=== PATIENT | female | born 1995 | race Caucasian/White ===

== ENCOUNTER 2023-05-19 09:04 | Emergency (ER) | payer OTHER, SELFPAY ==
--- NOTE | ~2023-05-19 | CT_ITS ---
EXAMINATION: CT abdomen pelvis w con INDICATION: Right lower quadrant pain TECHNIQUE: Computed tomographic images of the abdomen and pelvis were obtained after the administrati on of 100 cc of Omnipaque 350 intravenous contrast. The dose-length product (DLP) was 385.01 mGy-cm. Automated exposure control and iterative reconstruction technique were employed. COMPARISON: None available FINDINGS: The lung bases are clear. The heart size is normal. The liver, spleen, pancreas, gallbladde r, and adrenal glands are normal. The kidneys are unremarkable. No pathologically enlarged abdominal or pelvic lymph nodes are identified. There is a moderate amount of fluid in the right adnexa and pel vis. No free intraperitoneal gas or evidence of bowel obstruction. An IUD is in expected position. Th ere is a small umbilical hernia containing fat. The appendix is normal. IMPRESSION: 1. Moderate volume of fluid in the right adnexa likely reflecting ovarian cyst rupture. Reviewed, dictated and finalized at location [facility]. [facility] FACULTY MEMBER
--- NOTE | ~2023-05-19 | US_ITS ---
EXAMINATION: US pelvic complete DATE: 05/19/2023 12:38 INDICATION: Right lower quadrant pain TECHNIQUE: Multiple transabdominal sonographic images of the pelvis were obtained. COMPARISON: None. FINDINGS: The examination is limited by transabdominal only technique. The uterus measures 8.5 x 2.8 x 5.7 cm. The endometrial complex measures 2 mm. The right ovary measures 3.3 x 1.9 x 2.6 cm. The lef t ovary measures 2.7 x 1.3 x 2.2 cm. There is normal vascular flow in the ovaries. There is a small a mount of free fluid in the pelvis. IMPRESSION: 1. Small amount of free fluid in the pelvis. Evaluation limited by transabdominal only technique. Reviewed, dictated and finalized at location [facility]. [facility] MAINTENANCE IMPRESSION: 1. Small amount of free fluid in the pelvis. Evaluation limited by transabdomin al only technique.
[2023-05-19 09:16] VITALS: BP 129/82; PULSE 85; RESP 16; TEMP 37.1; O2SAT 100
[2023-05-19 10:10] VITALS: PULSE 92; RESP 15; O2SAT 100
[2023-05-19 10:25] LABS: Basophils Absolute Auto 0.1 K/mm3 (0.0-0.1); Basophils Percent Auto 1.2 % (0.2-1.2); Eosinophils Absolute Auto 0.1 K/mm3 (0-0.3); Eosinophils Percent Auto 0.8 % (0-4.4); Hematocrit 37.9 % (37.0-47.0); Hemoglobin 13.1 g/dL (12.0-15.0); Immature Granulocyte Absolute 0.02 K/mm3 (0.00-0.031); Immature Granulocyte Percent A 0.3 % (0-0.5); Lymphocytes Absolute Auto 1.92 K/mm3 (0.9-3.2); Lymphocytes Percent Auto 31.8 % (18.3-44.2); Mean Corpuscular HGB Conc 34.6 g/dl (32-36); Mean Corpuscular Hemoglobin 31.6 pg (26-34); Mean Corpuscular Volume 91.3 fl (80-100); Mean Platelet Volume 9.5 fl (7.4-10.4); Monocytes Absolute Auto 0.3 K/mm3 (0.1-0.6); Monocytes Percent Auto 4.5 % (2.6-8.5); Neutrophils Absolute Auto 3.7 K/mm3 (1.3-6.7); Neutrophils Percent Auto 61.4 % (45.5-73.1); Platelet Count Result 223 k/mm3 (150-375); Red Blood Count 4.15 M/mm3 (4.2-5.4); Red Cell Distribution Width 12.4 % (11.5-14.5)
[2023-05-19 10:31] LABS: Appearance Urine Clear (Clear); Bacteria Urine None Seen /hpf; Bilirubin Urine Negative (Negative); Blood Urine Negative (Negative); Color Urine Yellow (Yellow); Glucose Urine UA Negative (Negative); Ketones Urine Negative (Negative); Leukocyte Esterase Ur Trace LEU/UL (Negative); Nitrate Urine Negative (Negative); Non Pathogenic Casts 0-2; Protein Urine Negative (Negative); RBC Urine 0-2 /hpf (0-2); Specific Grav Ur 1.006 (1.001-1.035); Squamous Epithelial Cell Urine Few /hpf (Few); Urobilinogen Urine 0.2 mg/dL (<2.0); WBC Urine 0-5 /hpf
[2023-05-19 10:32] LABS: Add Urine Microscopic? YES
--- NOTE | 2023-05-19 10:36 | ED.ABDPAIN ---
HPI - Abdominal Pain General Chief Complaint: Abdominal Pain Stated Complaint: rlq pain Time Seen by Provider: 05/19/23 10:09 Source: patient Mode of arrival: ambulatory Limitations: no limitations History of Present Illness HPI narrative: This is a 27 year old female that presents to the ER for right lower quadrant pain. Ongoing over the last couple of days. Reports the pain worsened today which prompted her to be seen. She has been taking Tylenol and anti-inflammatories with some relief. Denies fever, vomiting, dysuria, hematuria. Related Data Allergies Allergy/AdvReac Type Severity Reaction Status Date / Time No Known Allergies Allergy Verified 05/19/23 10:09 Review of Systems Review of Systems: CONSTITUTIONAL: Denies fever GASTROINTESTINAL: Reports abdominal pain. Denies nausea, vomiting, or diarrhea. GENITOURINARY: Denies dysuria or hematuria. All systems reviewed & are unremarkable except as noted in HPI and below PMFSH Past Medical History Medical History (Updated 05/19/23 @ 14:06 by Emely Hardin PA-C) No active medical problems Social History Social History (Updated 05/19/23 @ 10:40 by Emely Hardin PA-C) Smoking status: Never smoker Exam Narrative: GENERAL: Well-appearing, well-nourished, and in no acute distress. HEAD: Normocephalic, atraumatic. EYES: EOMI. CHEST: Clear to auscultation. No respiratory distress. No wheezes rales or rhonchi HEART: Regular rate and rhythm. No murmur heard. Normal peripheral pulses. ABDOMEN: Soft, nondistended, normal active bowel sounds. Mild tenderness to palpation in the right lower quadrant, without guarding EXTREMITIES: Normal range of motion. No edema. SKIN: Warm, dry, no rash. NEURO: No focal deficits. Alert and oriented x3. PSYCH: Normal mood and affect Course Course Emergency Course: patient updated on her workup and agrees with plan of care Vital Signs Vital signs: Vital Signs Temperature 98.8 F 05/19/23 09:16 Pulse Rate 85 05/19/23 09:16 Respiratory Rate 16 05/19/23 09:16 Blood Pressure 129/82 05/19/23 09:16 Pulse Oximetry 100 05/19/23 09:16 Oxygen Delivery Room Air 05/19/23 09:16 Temperature 98.8 F 05/19/23 09:16 Pulse Rate 100 05/19/23 12:06 Respiratory Rate 18 05/19/23 12:06 Blood Pressure 130/82 05/19/23 12:06 Pulse Oximetry 100 05/19/23 12:06 Oxygen Delivery Room Air 05/19/23 09:16 MDM - Abdominal Pain MDM Narrative Medical decision making narrative: Patient presents to the emergency department for right lower quadrant pain. Ongoing over the last couple of days. Patient is afebrile and nontoxic appearing. CBC without leukocytosis. Metabolic panel without concerning findings. UA without evidence of infection. test is negative. CT abdomen and pelvis shows likely an ovarian cyst rupture. Pelvic ultrasound shows normal vascular flow to the ovaries with a small amount of free fluid in the pelvis. Patient instructed on further care of this. She is to follow up with her parts advisor. She was given warnings to return to the ER Differential Diagnosis Differential diagnosis: Likely acute appendicitis, calculus of kidney and other (ovarian cyst rupture) Lab Data Attestation: I reviewed the patient's lab results. 05/19/23 10:18 05/19/23 10:18 Labs: Lab Results 05/19/23 Range/Units 10:18 WBC 6.0 (4.5-10.0) K/mm3 RBC 4.15 L (4.2-5.4) M/mm3 Hgb 13.1 (12.0-15.0) g/dL Hct 37.9 (37.0-47.0) % MCV 91.3 (80-100) fl MCH 31.6 (26-34) pg MCHC 34.6 (32-36) g/dl RDW 12.4 (11.5-14.5) % Plt Count 223 (150-375) k/mm3 MPV 9.5 (7.4-10.4) fl Immature Gran % (Auto) 0.3 (0-0.5) % Neut % (Auto) 61.4 (45.5-73.1) % Lymph % (Auto) 31.8 (18.3-44.2) % Bay % (Auto) 4.5 (2.6-8.5) % Eos % (Auto) 0.8 (0-4.4) % Baso % (Auto) 1.2 (0.2-1.2) % Lymph # (Auto) 1.92 (0.9-3.2) K/mm3 Bay # (Auto) 0.3 (0.1-0.6)
[2023-05-19 10:42] LABS: Alanine Aminotransferase 13 U/L (6-35); Albumin Level 4.4 g/dL (3.5-5.1); Alkaline Phosphatase 44 U/L (38-126); Anion Gap 7 mmol/L (8-16); Aspartate Amino Transferase 26 U/L (14-36); Bilirubin,Total 0.8 mg/dL (0.2-1.3); Blood Urea Nitrogen 10 mg/dL (7-17); Calcium 9.6 mg/dL (8.4-10.2); Carbon Dioxide 25 mmol/L (22-30); Chloride 108 mmol/L (98-107); Estimated CRCL calculation 99 ml/min; Estimated Glomerular Filt Rate > 60; Glucose 96 mg/dL (65-110); Lipase 35 U/L (23-300); Potassium 4.1 mmol/L (3.4-5.0); Sodium 140 mmol/L (137-145)
--- NOTE | 2023-05-19 11:04 | PC.NURSE ---
Pt to CT scan via stretcher at this time.
[2023-05-19 12:06] VITALS: BP 130/82; PULSE 100; RESP 18; O2SAT 100
== END 2023-05-19 14:17 | disposition home or self-care (01) ==
PROVIDERS: Emergency Provider Physician Assistant
DX: N83.8 Other noninflammatory disorders of ovary, fallopian tube and broad ligament (principal)
CPT/HCPCS: 36415; 74177; 76856; 80053; 81001; 81025; 83690; 85025; 99284; Q9967

== ENCOUNTER 2024-08-15 07:02 | Outpatient (CLI) | payer OTHER, SELFPAY ==
--- NOTE | ~2024-08-15 | XR_ITS ---
Lumbosacral Spine: AP and lateral views Clinical History: Pain Findings: The normal lordotic curve is maintained. The vertebral bodies and posterior elements are i ntact. The intervertebral disc spaces are preserved. The sacroiliac joints are normally outlined. Impression: No significant abnormality. Reviewed, dictated and finalized at [facility]. Impression: No significant abnormality.
--- OUTSIDE RECORDS SUMMARY | 2024-08-15 07:06 | XMS_ITS | Clinical Summary ---
Author Organization [facility] Address [address] [place] [address] Care Team Providers Care [employer] St[employer]cher Name Role Phone Maggie Hernadez APRN-DIRECTORY CARRIER Unavailable [facility] Primary Care Provider [phone] Fredis Arango DO Unavailable Source Comments [facility],non-owned Affiliates and Associated Physician Practices is amultiple site organization consisting of ambulatory clinics and hospital sitesin [place], [place], [place] and [place]. This disclosure is being madepursuant to the Care Everywhere program and may not contain all information available regarding this patient. Last updated 17.[facility] Allergies No known active allergies Medications * Be aware that medications may not be up to date on this document. Alwaysverify current medications with the patient. Multiple Vitamin (One Daily Multivitamin Adult) TABS Take 1 tablet by mouth Active butalbital-aceta minophen-caffein e (Fioricet) 50-325-40 MG tabletIndication s:Other migraine without status migrainosus, intractable Take 1 (one) tablet by mouth every 4 hours as needed for Headache 60 tablet 1 2 Active levonorgestrel (Mirena) 20 MCG/DAY IUD by Intrauterine route as directed Active cephalexin (Keflex) 500 MG capsule 3 Active predniSONE (Deltasone) 20 MG tablet 3 Active tretinoin (Retin-A) 0.025 % creamIndications :Acne, unspecified acne type Apply to affected area at bedtime 20 g 3 Active Active Problems Problem Noted Date Diagnosed Date Migraine 02/10/2022 Chronic right shoulder pain 02/10/2022 Immunizations Immunization Administration Dates Next Due DTaP VACCINE IM (6wk-6yrs) 05/27/2002,,05/21/1998,03/20,01/29/1998 HEP B VACCINE, ADULT 3 DOSE 05/21/1998, 8,1997 HIB VACCINE 05/24/1999, 9,03/20/1998,01/29 INFLUENZA VACCINE, QUADR. (F LUZONE; FLULAVAL; FLUARIX; AFLURIA QUADRIVALENT; 6MO+), 0.5 ML (IIV4) 02/18/2019 MENINGOCOCAL MENINGITIS 06/07/2011 MENINGOCOCCAL ACWY (MCV4P) VAC IM 11/22/2015, MENINGOCOCCAL ACWY MENVEO 11/22/2015 MENINGOCOCCAL B RECOMBINANT, 2 OR 3 DOSE, IM 11/22/2015 MMR 05/27/2002,05/24/1999 Meningococcal B Recombinant 2 Dose, IM 6 POLIO IPV 05/27/2002 POLIO OPV 05/24/1999, 9,03/20/1998,01/29 TDAP (7yrs+) 11/23/2008 VARICELLA 06/07/2011,11/15/1999 Family History Relation Name Status Comments Brother Alive Father Alive Maternal Grandfather Maternal Grandmother Mother Alive Paternal Grandfather Paternal Grandmother half-sister Alive Social History Tobacco Use Types Packs/Day Years Used Date Smoking Tobacco: Never Smokeless Tobacco: Never Tobacco Cessation:Counseling Given: Not Answered Alcohol Use Standard Drinks/Week Comments Yes 0 (1 standard drink = 0.6 oz pur e alcohol) weekends AUDIT-C Answer Date Recorded Frequency of Alcohol Consumption Monthly or less 01/09/2019 Average Number of Drinks 1 or 2 019 Frequency of Binge Drinking Never 06/2018 PHQ-2 Answer Date Recorded PHQ2 TOTAL SCORE 0 04/28/2022 Comments No Sex and Gender Information Value Date Recorded Sex Assigned at Not on file Legal Sex Female 5:59 AM PHOTO MANAGER Gender Identity Not on file Sexual Orientation Not on file Occupation Industry Job Start Date Job End Date Student Not on file Not on file Not on file Last Filed Vital Signs Vital Sign Reading Time Taken Comments Blood Pressure 134/82 04/24/2022 4:17 PM PHOTO MANAGER Pulse 94 02/18/2019 3:15 PM PHOTO MANAGER Temperature - - Respiratory Rate - - Oxygen Saturation 98% 02/18/2019 3:15 PM PHOTO MANAGER Inhaled Oxygen Concentration - - Weight 65.8 kg (145 lb) 04/28/2022 12:17 PM PHOTO MANAGER Height 167.6 cm (5' 6 ) 04/24/2022 4:17 PM PHOTO MANAGER Body Mass Index 23.4 04/24/2022 4:17 PM PHOTO MANAGER Plan of Treatment Health Maintenance Due Date Last Done Comments HIV SCREENING 2012 HPV VACCINE (1 - 3-dose series) 2012 HEPATITIS C SCREENING 10/29/2015 MENINGOCOCCAL (Group B) VACCINE SHARED DECISION-MAKING (2 of 2 - Bexsero SCDM 2-dose series) 05/24/2016 11/22/2015, 11/22/2015 DTAP/TDAP/TD VACCINES (7 - Td or Tdap) 11/23/2018 11/23/2008, 05/27/2002, 05/24/1999, Additional history exists PAP SMEAR 04/24/2023 04/24/2022, 03/25/2019 COVID-19 VACCINE ( season) 2023 08/07/2020, 07/15/2020 DEPRESSION SCREENING 04/09/2024 04/28/2022, 02/11/20 22 INFLUENZA VACCINE (Season Ended) 2024 02/18/2019 ZOSTER VACCINE (1 of 2) 11/03/2047 HEPATITIS B VACCINE Completed 05/21/1998, 1997, 1997 HIB VACCINE Completed 05/24/1999, 05/10, 03/20/1998, Additional history exists MENINGOCOCCAL GROUPS A/C/Y/W VACCINE Completed 11/22/2015, 11/22/2015, 06/07/2011, Additional history exists PNEUMOCOCCAL VACCINE Aged Out No long er eligible based on patient's age to complete this topic Procedures Procedure Name Priority Date/Time Associated Diagnosis Comments PAP IG LB CT+NG+TV RFLX HPV ASCU Routine 04/24/2022 5:03 PM PHOTO MANAGER Well woman exam from Last 3 Months or Most Recently Relevant to Health Maintenance Results * PAP IG LB CT+NG+TV RFLX HPV ASCU (04/24/2022 5:03 PM PHOTO MANAGER) Diagnosis [facility] ACCOUNT BILL Comment:NEGATIVE FOR INTRAEP ITHELIAL LESION OR MALIGNANCY. Specimen Adequacy [facility] ACCOUNT BILL Comment: Satisfactory for evaluation. Endocervical and/or squamous metaplastic cells (endocervical component) are present. Clinician Provided ICD10 [facility] ACCOUNT BILL Comment:Z01.419 Performed by [facility] ACCOUNT BILL Comment:Bonny Carrion chnologist (ASCP) Comment . [facility] ACCOUNT BILL Note [facility] ACCOUNT BILL Comment: The Pap smear is a screening test designed to aid in the detection of premalignant and malignant conditions of the uterine cervix. It is not a diagnostic procedure and should not be used as the sole means of detecting cervical cancer. Both false-positive and false-negative reports do occur. . IGLBP CPT Code Automation [facility] ACCOUNT BILL Comment: This liquid based ThinPrep(R) pap test was screened with the use of an image guided system. Note [facility] ACCOUNT BILL Comment: The HPV DNA reflex criteria were not met with this specimen result therefore, no HPV testing was performed. . Chlamydia trachomatis KYREE Negative Negative [facility] ACCOUNT BILL GC KYREE Negative Negative [facility] ACCOUNT BILL Trichomonas vaginalis by KYREE Negative Negative [facility] ACCOUNT BILL PART OF UTERINE CERVIX / Unknown 04/24/2022 5:03 PM PHOTO MANAGER 04/26/2022 Narrative [facility] ACCOUNT BILL - 04/27/2022 3:09 PM PHOTO MANAGER No. of containers..01 ThinPrep Vial Resulting Agency Comment Lab Testing performed at: [facility] [id number] [place] Fredis Arango DO LAB - PATHOLOGY/CYTOLOGY ORDERAB LES Final Result [facility] ACCOUNT BILL [address] [place] [phone] from Last 3 Months or Most Recently Relevant to Health Maintenance Insurance Care Teams [employer] Relationship Specialty Start Date End Date Luna Ravi MD [address] [phone] PCP - General Family Medicine 02/10/22 Maggie Hernadez APRN-DIRECTORY CARRIER Nurse Practitioner 08/01/19 Fredis Arango DO [address] [id number] Obstetrics and Gynecology 04/28/22
--- OUTSIDE RECORDS SUMMARY | 2024-08-15 07:06 | XMS_ITS | Continuity of Care Document ---
Author Name [facility] Organization [facility] Care Team Providers Care Teaching Assistant Name Role Phone [facility] Unavailable Unavailable Problems Combined list of problems from Department of Defense and Veterans Affairs facilities. It does not include entries that were removed or entered in error. Problem Status Onset Date Problem Type Date of Resolution Comme nts Source Acne vulgaris Active Condition [facility] Allergies, Adverse Reactions, Alerts Combined list of allergies from Department of Defense and Veterans Affairs facilities. It does not include entries that were removed or entered in error. Substance Category Reaction Severity Reaction type Status Date Reported Comments Source No Known Allergies Drug allergy (disorder) active 1 [place], [place] Immunizations Combined list of available immunizations from the Department of Defense and Veterans Affairs facilities. Immunization Series Date Given Administered By Site Reaction Lot Number CVX Code Drug Mink Farmer Status Comments Source COVID Vaccine Pfizer 2020 zzLef t Arm [id number] PFIZER complet ed COVID Vaccine Pfizer 08/07/20 Given Ambulat ory Pharmac y SARS-COV-2 (COVID-19) vaccine, mRNA, spike protein, LNP, preservative free, 30 mcg/0.3mL dose 2 2020 HERMINIA SALAZAR [id number] Pfizer, Inc (PFR) complet ed SARS-COV- 2 (COVID-19 ) vaccine, mRNA, spike protein, LNP, preservat lina free, 30 mcg/0.3mL dose DoD COVID Vaccine Pfizer 2020 zzLef t Arm [id number] PFIZER complet ed COVID Vaccine Pfizer 07/15/20 Given Ambulat ory Pharmac y SARS-COV-2 (COVID-19) vaccine, mRNA, spike protein, LNP, preservative free, 30 mcg/0.3mL dose 1 2020 GIANA STEWART [id number] Pfizer, Inc (PFR) complet ed SARS-COV- 2 (COVID-19 ) vaccine, mRNA, spike protein, LNP, preservat lina free, 30 mcg/0.3mL dose DoD Encounters Combined list of: 1) Encounters from Department of Veterans Affairs facilities going backup to the last 18 months, not all VA inpatient encounters are included; 2) Encounters from the Department of Defense facilities going backup to 280 months. Location Location Details Encounter Type Encounter Number Reason For Visit Attending Provider ADM Date DC Date Status Disposition [place] [facility] [place] [facility] [facility] [id number] VH/ ESTABLI SHED CARE/ [id number]/ VAIRIN BROOKE MEHRDAD A 03/23 Released w/o Limitations [facility], [place]) [facility] TELE CONSULT [id number] Notes Entered by: MARIYA RUSHING 25 Mar 2020 1025 ------- ------- ------- ------- -- VAIRIN/ JARET DE JESUS 03/25 Other Not Elsewhere Classified [facility], [place]) [facility] [place] OUTPATIENT [id number] Acne, unspeci fied FADY DOMINIQUE 04/12 Released w/o Limitations [facility], [place](Derm [place] ) [facility], [place] OUTPATIENT [id number] F2F/Phy sical/ Vairin BROOKE MEHRDAD A 04/21 Released w/o Limitations [facility], [place] [facility] [facility], [place] OUTPATIENT [id number] Migrain e Medicin e, PCM:VAI RIN,KARSTEN AN A BROOKE MEHRDAD A 05/10 Released w/o Limitations [facility] [employer] [place] [facility]) [facility], [employer]) [place] [id number] accutan e first month FADY DOMINIQUE [place] 05/13 Released w/o Limitations [facility], [employer] [facility] [employer] [place] TELE CONS[place] [id number] Notes Entered by: BRITNI BARRERA 18 May 2020 1042 ------- ------- ------- ------- -- PT complet ed labs today for Robby e. Please assist! TRESAOARLFADY [place] 05/18 [facility], [employer] [facility] [employer] [place]) [place] [id number] accutan e KGDOLORES FADY [place] 06/14 Released w/o Limitations [facility], [employer] [facility], [employer] [place]) [place] [id number] PF VAX1 SUG GIANA STEWART 07/15 Released w/o Limitations [facility], [employer] [facility] [employer] [place]) [place] [id number] Accutan e KGDOLORES FADY [place] 07/19 Released w/o Limitations [facility], [employer] [facility], [employer]) [place] [id number] PF VAX2 SUG HERMINIA SALAZAR 08/07 Released w/o Limitations [facility], [employer] [facility] [employer] [place]) [place] [id number] [facility]an e [facility] Released w/o Limitations [facility], [employer] [facility] [employer] [place] TELE CONSULT [id number] Notes Entered by: BRITNI BARRERA 23 Aug 2020 0846 ------- ------- ------- ------- -- pt did not cook pickled meat Accutan e in time. Please assist! AMPARO KEEN 08/23 Other Not Elsewhere Classified [facility], [employer] [facility], [employer]) [place] [id number] virtual accutan e FADY DOMINIQUE [place] 09/15 Released w/o Limitations [facility], [employer] [facility] [employer] [place] [id number] VH/KIDN EY PAIN/VA IRIN/63 [id number] VATOSINNMEHRDAD A 10/14 Released w/o Limitations [facility], [employer] [facility] [employer] [id number] VH/IUD CONCERN S/VAIRI [id number] GINGER BHAKTA 11/11 Released w/o Limitations [facility], [employer] [facility] [employer] [place]) [place] [id number] accutan e/ should be complet e AGATHA MEJIAS 11/11 Released w/o Limitations [facility], [employer] [facility] [employer] [place] TELE CONS[place] [id number] Notes Entered by: Diana CENTENO 12 Nov 2020 0815 ------- ------- ------- ------- -- Pelvic pain with interco urse MEHRDAD [place] 11/12 [facility], [employer] [facility], [place] [id number] IUD CONCERN /MEHRDAD RDZ 12/07 Released w/o Limitations [facility], [employer] [facility] [employer] [id number] PREG TEST/JACKIE MABRY 12/07 Released w/o Limitations [facility], [employer] [facility], [place] TELE CONS[place] [id number] Notes Entered by: WILSON PARIKH,[facility] 20 Dec 2020 0954 ------- ------- ------- ------- -- Secured message /Ultras donnd MEHRDAD COX 12/20 [facility] [employer] [facility], [place]) [place] [id number] accutan e virtual AGATHA MEJIAS 12/22 Released w/o Limitations [facility], [employer] [facility] [place]LE CONS[place] [id number] Notes Entered by: YAZAN BLANCO 11 Jan 2021 1524 ------- ------- ------- ------- -- Ultraso und Orders MEHRDAD COX 01/11 [facility] [employer] [facility], [place] F[facility]) TELE CONSULT [id number] Notes Entered by: GARRY PAREKHSAWYERJennifer IZABELLACARITO 19 Jan 2021 1324 ------- ------- ------- ------- -- VAIRIN/ RESCHED ULE APPT/SE E NOTES JUSTIN ADAMS 01/19 Other Not Elsewhere Classified [facility], [place]) [facility], [place] M[facility]C [facility]) TELE CONSULT [id number] Notes Entered by: AINSLEY HERNDON 19 Jan 2021 1449 ------- ------- ------- ------- -- THOMPSO N/ DERMATO LOGY FOLLOW UP MARYANNE SOTO 01/19 Referred for Appointment [facility], [place]([facility]) [facility], [place] OUTPATIENT [id number] f2f/ accutan e f/u/ thompso n BEBE JOSEPH 01/31 Released w/o Limitations [facility], [place]([facility]) [facility], [place] F[facility] TELE CONSULT [id number] Notes Entered by: DAYNA REDD 28 Feb 2021 0757 ------- ------- ------- ------- -- NETWORK RESULTS , ZAYRA TY 02/28 Other Not Elsewhere Classified [facility], [place] F[facility]) [facility], [place] OUTPATIENT [id number] Pap Smear MEHRDAD COX 03/24 Released w/o Limitations [facility], [employer] [facility] [employer] [id number] FTF/VIDAI NICKOLAS LOBO 04/27 Released w/o Limitations [facility], [employer] [facility] [employer] TELE CONS[place] [id number] Notes Entered by: LUIS ARMANDO STALEY 18 May 2021 1059 ------- ------- ------- ------- -- SUNNI IVEY/NICKOLAS BRICE 05/18 [facility] [employer] [facility] [employer] [id number] acu initial anxiety NICKOLAS IVEY 06/21 Released w/o Limitations [facility], [employer] [facility] [employer]LE CONS[place] [id number] Notes Entered by: Pam IVEY 21 Jun 2021 1123 ------- ------- ------- ------- -- Pt request for new med- fiMEHRDAD Nice 06/21 [facility] [employer] [facility] [employer] [id number] [email or web address] MEHRDAD Gallardo 06/28 Released w/o Limitations [facility], [employer] [facility] [employer] TELE CONS[place] [id number] Notes Entered by: LEONARDO RODRIGUEZ 13 Jul 2021 1341 ------- ------- ------- ------- -- referra jennifer BURGESSS ZAYRA Pam 07/13 [facility] App[facility]ment [facility], [place], [place]([facility] F[facility]B SEM) [facility] [place] F[facility] SEM[place] TELE CONSULT [id number] Notes Entered by: JACQUELINE JAIME 02 Aug 2021 0925 ------- ------- ------- ------- -- NETWORK RESULTS /PHYSIC AL THERAPY MEHRDAD COX 08/02 [facility], [place], [place]([facility] F01C SEM) [facility] [place] F[facility] OUTPATIENT [id number] Shoulde r Pain/OT MEHRDAD COX 08/09 Released w/o Limitations [facility], [place], [place]([facility] F[facility] SEM) [facility], [place] TELE CONSULT [id number] Notes Entered by: DAYNA REDD 01 Sep 2021 120 ------- ------- ------- ------- -- NETWORK RESULTS , PHYSICA L THERAPY , SIGNATU RE REQUEST MEHRDAD COX 09/01 [facility], [place] [facility], [place] F[facility] TELE CONSULT [id number] Notes Entered by: DAYNA REDD 06 Oct 2021 0955 ------- ------- ------- ------- -- NETWORK RESULTS , PHYSICA L THERAPY , SIGNATU RE REQUEST MEHRDAD COX 10/06 [facility], [facility], [place] F[facility] [facility], [place] F[facility]C SEM[place] TELE CONSULT [id number] Notes Entered by: JACQUELINE JAIME 14 Nov 2021 0955 ------- ------- ------- ------- -- SIGNATU RE REQUEST ED NETWORK RESULTS /PHYSIC AL THERAPY MEHRDAD COX 11/14 [facility], [facility] [facility], [facility] [place] F[facility] SEM[place] TELE CONSULT [id number] Notes Entered by: BEAU GARCIA 30 Nov 2021 0953 ------- ------- ------- ------- -- MEHRDAD Garcia 11/30 [facility], [facility], [place] Procedures Combined list of: 1) Procedures from Department of Veterans Affairs facilities going back up to thelast 18 months, not all VA non-surgical procedures are included; 2) All procedures from the Department of Defense facilities. Procedure Procedure Type Code Date Perfomer Comments Sourc e No data available for this section Ambulatory Pharmacy Waiver services; not otherwise specified (NOS) MEHRDAD COX Non-Physician Phone Call To Patient/Provider Brief (5-10min) Non-Physician Phone Call To Patient/Provide r Brief (5-10min) [id number] AMPARO KEEN [facility] Screening papanicolaou smear; obtaining, preparing and conveyance of cervical or vaginal smear to laboratory MEHRDAD COX Med Management By Pharmacist Initial 15 Min New Patient Med Management By Pharmacist Initial 15 Min New Patient [id number] NICKOLAS IVEY Appointment Time: [id number]. Time spent with pt: 60 minutes. time spent on medication evaluation- 30 minutes DoD Med Management By Pharmacist Initial 15 Min Estab Patient Med Management By Pharmacist Initial 15 Min Estab Patient [id number] NICKOLAS IVEY DoD Acupunct One Or More [place] W/O Stimulation Initial 15 Min Acupunct One Or More [place] W/O Stimulation Initial 15 Min [id number] NICKOLAS IVEY time spent inserting needles- 30 minutes DoD Acupunct One/More [place] W/O Stim Addl 15 Min W/ Reinsert Acupunct One/More [place] W/O Stim Addl 15 Min W/ Reinsert [id number] NICKOLAS IVEY [facility] Medication Management By Pharmacist Each Additional 15 Min Medication Management By Pharmacist Each Additional 15 Min [id number] NICKOLAS IVEY Appointment Time: [id number]. Time spent with pt: 45 minutes. time spent on medication evaluation- 15 minutes [facility] Acupunct One Or More [place] W/O Stimulation Initial 15 Min Acupunct One Or More [place] W/O Stimulation Initial 15 Min 95418 NICKOLAS IVEY time spent inserting needles- 30 [facility] DoD WAIVER SERVICES; NOT OTHERWISE SPECIFIED (NOS) 06/29/19 [facility] ACUPUNCTURE, 1/MORE NEEDLES; WO ELECTRICAL STIMULATION, EA ADDITIONAL 15 MINUTES, PERSONAL ONE-ON-ONE CONTACT W THE PATIENT, W RE-INSERTION, NEEDLE(S) (LIST SEPARATELY ADDITION CODE, 1 PROCEDURE) 06/22/19 22 [facility] ACUPUNCTURE, 1/MORE NEEDLES; WO ELECTRICAL STIMULATION, EA ADDITIONAL 15 MINUTES, PERSONAL ONE-ON-ONE CONTACT W THE PATIENT, W RE-INSERTION, NEEDLE(S) (LIST SEPARATELY ADDITION CODE, 1 PROCEDURE) 04/27/19 [facility] SCREENING PAPANICOLAOU SMEAR; OBTAINING, PREPARING AND CONVEYANCE OF CERVICAL OR VAGINAL SMEAR TO LABORATORY 03/24/20 [facility] TELE ASSESS & MGT SRV PROV QUAL NONPHYS HLTH CARE PRO TO EST PAT,PARENT,GUARD NOT ORIG REL ASSESS & MGT SRV PROV W/IN PREV 7 DAYS NOR LEAD ASSESS & MGT SRV/PX W/IN NXT 24 HR/SOON APT;5-10 MIN MED DIS 01/20/20 21 DoD WAIVER SERVICES; NOT OTHERWISE SPECIFIED (NOS) 12/23/19 21 DoD WAIVER SERVICES; NOT OTHERWISE SPECIFIED (NOS) 11/12/19 21 DoD WAIVER SERVICES; NOT OTHERWISE SPECIFIED (NOS) 09/16/19 21 [facility] TELE ASSESS & MGT SRV PROV QUAL NONPHYS HLTH CARE PRO TO EST PAT,PARENT,GUARD NOT ORIG REL ASSESS & MGT SRV PROV W/IN PREV 7 DAYS NOR LEAD ASSESS & MGT SRV/PX W/IN NXT 24 HR/SOON APT;5-10 MIN MED DIS 08/24/19 DoD IMMUNIZATION ADM,INTRAMUSCULA R INJ,SEVERE AC RESPIRATORY SYNDROME CORONAVIR 2 (SARSCOV-2) (CORONAVIR DIS [COVID-19]) VACC,MRNALNP,SPI KE PROT,PRESRV FREE,30 MCG/0.3ML DOS,DILUENT RECONSTITUT;2ND DOSE 08/08/19 DoD IMMUNIZATION ADM,INTRAMUSCULA R INJ,SEVERE AC RESPIRATORY SYNDROME CORONAVIR 2 (SARSCOV-2) (CORONAVIR DIS [COVID-19]) VACC,MRNALNP,SPI KE PROT,PRESRV FREE,30 MCG/0.3ML DOS,DILUENT RECONSTITUT;1ST DOSE 07/16/19 [facility] WAIVER SERVICES; NOT OTHERWISE SPECIFIED (NOS) 05/10/19 DoD WAIVER SERVICES; NOT OTHERWISE SPECIFIED (NOS) 03/23/20 [facility] Social History Combined list of available smoking, tobacco, and other social history from Department of Defense and Veterans Affairs facilities. Social History Type Response Date Comment Sour e This section is an empty social history section. DoD Assessment and Plan Combined list of future care activities from Department of Defense and Veterans Affairs facilities (e.g., assessment and plan notes, appointments, orders, and referrals). Additional future care activities may be listed in the Plan of Care section. Result Assessment and Plan Date Source Assessment and Plan No data available for this section 08/15/2024 Ambulatory Pharmacy Functional Status Combined list of recent functional and cognitive assessments recorded at Department of Defense and Veterans Affairs (VA).[facility] Functional [place] Measurement (FIM) Scale: 1 = Total Assistance (Subject = 0% +), 2 = Maximal Assistance (Subject = 25% +), 3 = Moderate Assistance (Subject = 50% +), 4 = Minimal Assistance (Subject = 75% +), 5 = Supervision, 6 = Modified [place] (Device), 7 = Complete [place] (Timely, Safely). Assessment Date/Time Source Assessment Type Assessment Skill Assessment Score Assessment Details No data available for this section
== END 2024-08-15 07:03 | disposition home or self-care (01) ==
LOC: CHSLAB 07:04
PROVIDERS: PCP Registered Nurse; Visit Provider Registered Nurse
DX: M54.16 Radiculopathy, lumbar region (principal)
CPT/HCPCS: 72100

== ENCOUNTER 2024-08-20 14:34 | Outpatient (CLI) | payer OTHER, SELFPAY ==
--- NOTE | ~2024-08-20 | MR_ITS ---
MRI of the lumbar spine Clinical History: Radiculopathy Technique: Axial T2-weighted images, and sagittal T1-weighted, T2-weighted, and and T2 fat-sat images were acquired. Findings: There is no fracture or subluxation of the lumbar spine. Vertebral bodies maintain normal h eight and alignment. No bone marrow signal abnormality seen. At L1-L2, L2-L3, L3-L4, L4-L5, intervertebral discs maintain normal signal and position. No disc bulg e or herniation T levels. No spinal canal stenosis or neural foraminal narrowing at these levels. The re are minimal facet joint degenerative changes at these levels. At L5-S1, there is disc desiccation with mild disc bulge and annular fissure. There is mild facet art hropathy. No central canal stenosis. There is mild bilateral neural foraminal narrowing. Impression: Mild degenerative spondylosis overall L5-S1, as detailed above. Reviewed, dictated and finalized at [facility]. Impression: Mild degenerative spondylosis overall L5-S1, as detailed above.
== END 2024-08-20 14:35 | disposition home or self-care (01) ==
PROVIDERS: PCP Registered Nurse; Visit Provider Registered Nurse
DX: M47.26 Other spondylosis with radiculopathy, lumbar region (principal)
CPT/HCPCS: 72148

== ENCOUNTER 2024-11-14 10:23 | Outpatient (CLI) | payer OTHER, SELFPAY ==
--- OUTSIDE RECORDS SUMMARY | 2024-11-14 10:28 | XMS_ITS | Continuity of Care Document ---
Author Name [facility] Organization [facility] Care Team Providers Care Guide Escort Name Role Phone [facility] Unavailable Unavailable Problems Combined list of problems from Department of Defense and Veterans Affairs facilities. It does not include entries that were removed or entered in error. Problem Status Onset Date Problem Type Date of Resolution Comme nts Source Acne vulgaris Active Condition [facility] Allergies, Adverse Reactions, Alerts Combined list of allergies from Department of Defense and Veterans Affairs facilities. It does not include entries that were removed or entered in error. Substance Category Reaction Severity Reaction type Status Date Reported Comments Source No Known Allergies Drug allergy (disorder) active 1 [place], [place] Immunizations Combined list of available immunizations from the Department of Defense and Veterans Affairs facilities. Immunization Series Date Given Administered By Site Reaction Lot Number CVX Code Drug Picture Painter Status Comments Source COVID Vaccine Pfizer 2020 zzLef t Arm [id number] PFIZER complet ed COVID Vaccine Pfizer 08/07/20 Given Ambulat ory Pharmac y SARS-COV-2 (COVID-19) vaccine, mRNA, spike protein, LNP, preservative free, 30 mcg/0.3mL dose 2 2020 HERMINIA SALAZAR [id number] Pfizer, Inc (PFR) complet ed SARS-COV- 2 (COVID-19 ) vaccine, mRNA, spike protein, LNP, preservat lina free, 30 mcg/0.3mL dose DoD COVID Vaccine Pfizer 2020 zzLef t Arm [id number] PFIZER complet ed COVID Vaccine Pfizer 07/15/20 Given Ambulat ory Pharmac y SARS-COV-2 (COVID-19) vaccine, mRNA, spike protein, LNP, preservative free, 30 mcg/0.3mL dose 1 2020 GIANA STEWART [id number] Pfizer, Inc (PFR) complet ed SARS-COV- [...] [facility] [place] [facility] [facility] [id number] VH/ ESTABLI SHED CARE/ [id number]/ VAIRIN BROOKE MEHRDAD A 03/23 Released w/o Limitations [facility], [place]([facility] F01B SEMH) [facility], [place](AMH F01B SEMH) TELE CONSULT [id number] 1 Notes Entered by: MARIYA RUSHING 25 Mar 2020 1025 ------- ------- ------- ------- -- VAIRIN/ JARET DE JESUS 03/25 Other Not Elsewhere Classified [facility], [place](AM[facility] F01B SEMH) [facility], [place](Dermat ology) OUTPATIENT [id number] Acne, unspeci fied FADY DOMINIQUE 04/12 Released w/o Limitations [facility], [place](Derm atology ) [facility], [place]([facility] F01B SEMH) OUTPATIENT [id number] F2F/Phy sical/ Vairin BROOKE MEHRDAD A 04/21 Released w/o Limitations [facility], [place] F[place]) [facility], [place]([facility] F01B SEMH) OUTPATIENT [id number] Migrain e Medicin e, PCM:VAI RIN,KARSTEN AN A BROOKE MEHRDAD A 05/10 Released w/o Limitations [facility], [employer] [place] [facility]) [facility], [employer]) [place] [id number] accutan e first month FADY DOMINIQUE [place]S 05/13 Released w/o Limitations [facility], [employer] [facility], [employer] TELE CONSULT [id number] 3 Notes Entered by: BRITNI BARRERA 18 May 2020 1042 ------- ------- ------- ------- -- PT complet ed labs today for Robby e. Please assist! TRESAORALFADY [place]S 05/18 [facility], [employer] [facility], [employer] [place]) [place] [id number] accutan e KGDOLORES FADY [place] 06/14 Released w/o Limitations [facility], [employer] [facility], [employer] [place]) [place] [id number] PF VAX1 SUG GIANA STEWART 07/15 Released w/o Limitations [facility], [employer] [facility], [employer]) [place] [id number] Accutan e KGDOLORES FADY [place] 07/19 Released w/o Limitations [facility], [employer] [facility], [employer]) [place] [id number] PF VAX2 SUG HERMINIA SALAZAR 08/07 Released w/o Limitations [facility], [employer] [facility], [employer] [place]) [place] [id number] accutan e [facility] 08/11 Released w/o Limitations [facility], [employer] [facility], [employer] TELE CONSULT [id number] 9 Notes Entered by: BRITNI BARRERA 23 Aug 2020 0846 ------- ------- ------- ------- -- 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 Please assist! AMPARO KEEN 08/23 Other Not Elsewhere Classified [facility], [employer] [facility], [employer]) [place] [id number] virtual accutan e FADY DOMINIQUE [place] 09/15 Released w/o Limitations [facility], [employer] [facility], [employer] [place] [id number] VH/KIDN EY PAIN/VA IRIN/63 [id number] VATOSINNMEHRDAD A 10/14 Released w/o Limitations [facility], [employer] [facility], [employer] [id number] VH/IUD CONCERN S/VAIRI N/[id number] GINGER BHAKTA 11/11 Released w/o Limitations [facility], [employer] [facility], [employer] [place] [id number] accutan e/ should be complet e AGATHA MEJIAS 11/11 Released w/o Limitations [facility], [employer] [facility], [employer] [place] TELE CONSULT [id number] 7 Notes Entered by: Diana CENTENO 12 Nov 2020 0815 ------- ------- ------- ------- -- Pelvic pain with interco urse MEHRDAD COX 11/12 [facility], [employer] [facility], [place] [id number] IUD CONCERN /MEHRDAD RDZ 12/07 Released w/o Limitations [facility], [employer] [facility], [employer] [place] [id number] PREG TEST/JACKIE MABRY 12/07 Released w/o Limitations [facility], [employer] [facility], [place] TELE CONSULT [id number] 2 Notes Entered by: WILSON PARIKH,[facility] 20 Dec 2020 0954 ------- ------- ------- ------- -- Secured message /Ultras donnd MEHRDAD COX 12/20 [facility], [employer] [facility], [place]) [place] [id number] accutan e virtual AGATHA MEJIAS 12/22 Released w/o Limitations [facility], [employer] [facility], [place] TELE CONSULT [id number] 2 Notes Entered by: YAZAN BLANCO 11 Jan 2021 1524 ------- ------- ------- ------- -- Ultraso und Orders MEHRDAD COX 01/11 [facility], [employer] [facility], [place] F01B SEMH) TELE CONSULT [id number] 0 Notes Entered by: GARRY PAREKHSAWYERJennifer IZABELLACARITO 19 Jan 2021 1324 ------- ------- ------- ------- -- VAIRIN/ RESCHED ULE APPT/SE E NOTES JUSTIN ADAMS 01/19 Other Not Elsewhere Classified [facility], [place](AM[facility] F01B SEMH) [facility], [place] M01C Cmnche) TELE CONSULT [id number] Notes Entered by: AINSLEY HERNDON 19 Jan 2021 1449 ------- ------- ------- ------- -- THOMPSO N/ DERMATO LOGY FOLLOW UP MARYANNE SOTO 01/19 Referred for Appointment [facility], [place]([facility] M01C Cmnche) [facility], [place] M01C Cmn[facility]) OUTPATIENT [id number] f2f/ accutan e f/u/ thompso n BEBE JOSEPH 01/31 Released w/o Limitations [facility], [place]([facility] M01C Cmnche) [facility], [place] F01A SEMH) TELE CONSULT [id number] 2 Notes Entered by: DAYNA REDD 28 Feb 2021 0757 ------- ------- ------- ------- -- NETWORK RESULTS , ZAYRA TY 02/28 Other Not Elsewhere Classified [facility], [place](AMH F01A SEMH) [facility], [place] F01[place] [facility] OUTPATIENT [id number] Pap Smear MEHRDAD COX 03/24 Released w/o Limitations [facility], [employer] [facility], [employer] [id number] FTF/VIDAI NICKOLAS LOBO 04/27 Released w/o Limitations [facility], [employer] [facility], [employer] TELE CONSULT [id number] Notes Entered by: LUIS ARMANDO STALEY 18 May 2021 1059 ------- ------- ------- ------- -- SUNNI IVEY/NICKOLAS BRICE 05/18 [facility], [employer] [facility], [employer] [id number] acu initial anxiety NICKOLAS IVEY 06/21 Released w/o Limitations [facility], [employer] [facility] [employer] TELE CONSULT [id number] Notes Entered by: Pam IVEY 21 Jun 2021 1123 ------- ------- ------- ------- -- Pt request for new med- fiMEHRDAD Nice 06/21 [facility], [employer] [facility], [employer] [id number] [email or web address] MEHRDAD Gallardo 06/28 Released w/o Limitations [facility], [employer] [facility], [employer] TELE CONSULT [id number] Notes Entered by: LEONARDO RODRIGUEZ 13 Jul 2021 1341 ------- ------- ------- ------- -- referra jennifer BURGESSS ZAYRA Pam 07/13 [facility] Appointment [facility], [place], [place]([facility] F01B SEM) [facility], [place] F01C SEM) TELE CONSULT [id number] 9 Notes Entered by: JACQUELINE JAIME 02 Aug 2021 0925 ------- ------- ------- ------- -- NETWORK RESULTS /PHYSIC AL THERAPY MEHRDAD COX 08/02 [facility], [place], [place]([facility] F01C SEM) [facility], [place] F01B SEM) OUTPATIENT [id number] Shoulde r Pain/OT MEHRDAD COX 08/09 Released w/o Limitations [facility], [place], [place]([facility] F01B SEM) [facility], [place] F01B SEM) TELE CONSULT [id number] Notes Entered by: DAYNA REDD 01 Sep 2021 120 ------- ------- ------- ------- -- NETWORK RESULTS , PHYSICA L THERAPY , SIGNATU RE REQUEST MEHRDAD COX 09/01 [facility], [place] F01B SEM) [facility], [place] F01B SEM) TELE CONSULT [id number] Notes Entered by: DAYNA REDD 06 Oct 2021 0955 ------- ------- ------- ------- -- NETWORK RESULTS , PHYSICA L THERAPY , SIGNATU RE REQUEST MEHRDAD COX 10/06 [facility], [place] F01B SEM) [facility], [place] F01C SEM) TELE CONSULT [id number] 9 Notes Entered by: JACQUELIEN JAIME 14 Nov 2021 0955 ------- ------- ------- ------- -- SIGNATU RE REQUEST ED NETWORK RESULTS /PHYSIC AL THERAPY MEHRDAD COX 11/14 [facility], [place] F[place] [facility], [place] F01B SEM) TELE CONSULT [id number] Notes Entered by: BEAU GARCIA 30 Nov 2021 0953 ------- ------- ------- ------- -- MEHRDAD Garcia 11/30 [facility], [facility], [place]([facility] F01B SEM) Procedures Combined list of: 1) Procedures from Department of Veterans Affairs facilities going back up to thelast 18 months, not all VA non-surgical procedures are included; 2) All procedures from the Department of Defense facilities. Procedure Procedure Type Code Date Perfomer Comments [facility] e WAIVER SERVICES; NOT OTHERWISE SPECIFIED (NOS) 06/28/2021 [facility] ACUPUNCTURE, 1/MORE NEEDLES; WO ELECTRICAL STIMULATION, EA ADDITIONAL 15 MINUTES, PERSONAL ONE-ON-ONE CONTACT W THE PATIENT, W RE-INSERTION, NEEDLE(S) (LIST SEPARATELY ADDITION CODE, 1 PROCEDURE) 06/21/2021 [facility] ACUPUNCTURE, 1/MORE NEEDLES; WO ELECTRICAL STIMULATION, EA ADDITIONAL 15 MINUTES, PERSONAL ONE-ON-ONE CONTACT W THE PATIENT, W RE-INSERTION, NEEDLE(S) (LIST SEPARATELY ADDITION CODE, 1 PROCEDURE) 04/27/2021 [facility] SCREENING PAPANICOLAOU SMEAR; OBTAINING, PREPARING AND CONVEYANCE OF CERVICAL OR VAGINAL SMEAR TO LABORATORY 03/24/2021 [facility] TELE ASSESS & MGT SRV PROV QUAL NONPHYS HLTH CARE PRO TO EST PAT,PARENT,GUARD NOT ORIG REL ASSESS & MGT SRV PROV W/IN PREV 7 DAYS NOR LEAD ASSESS & MGT SRV/PX W/IN NXT 24 HR/SOON APT;5-10 MIN MED DIS 01/19/2021 [facility] WAIVER SERVICES; NOT OTHERWISE SPECIFIED (NOS) 12/22/2020 [facility] WAIVER SERVICES; NOT OTHERWISE SPECIFIED (NOS) 11/11/2020 [facility] WAIVER SERVICES; NOT OTHERWISE SPECIFIED (NOS) 09/15/2020 [facility] TELE ASSESS & MGT SRV PROV QUAL NONPHYS HLTH CARE PRO TO EST PAT,PARENT,GUARD NOT ORIG REL ASSESS & MGT SRV PROV W/IN PREV 7 DAYS NOR LEAD ASSESS & MGT SRV/PX W/IN NXT 24 HR/SOON APT;5-10 MIN MED DIS 08/23/2020 [facility] IMMUNIZATION ADM,INTRAMUSCULAR INJ,SEVERE AC RESPIRATORY SYNDROME CORONAVIR 2 (SARSCOV-2) (CORONAVIR DIS [COVID-19]) VACC,MRNALNP,SPIKE PROT,PRESRV FREE,30 MCG/0.3ML DOS,DILUENT RECONSTITUT;2ND DOSE 08/07/2020 [facility] IMMUNIZATION ADM,INTRAMUSCULAR INJ,SEVERE AC RESPIRATORY SYNDROME CORONAVIR 2 (SARSCOV-2) (CORONAVIR DIS [COVID-19]) VACC,MRNALNP,SPIKE PROT,PRESRV FREE,30 MCG/0.3ML DOS,DILUENT RECONSTITUT;1ST DOSE 07/15/2020 [facility] WAIVER SERVICES; NOT OTHERWISE SPECIFIED (NOS) 05/10/2020 [facility] WAIVER SERVICES; NOT OTHERWISE SPECIFIED (NOS) 03/23/2020 DoD No data available for this section Ambulato ry Pharmacy Social History Combined list of available smoking, tobacco, and other social history from Department of Defense and Veterans Affairs facilities. Social History Type Response Date Comment Sourc e This section is an empty social [...] Plan No data available for this section 11/14/2024 Ambulatory Pharmacy Functional Status Combined list of recent functional and cognitive assessments recorded at Department of Defense and Veterans Affairs (VA).VA Functional [place] Measurement (FIM) Scale: 1 = Total Assistance (Subject = 0% +), 2 = Maximal Assistance (Subject = 25% +), 3 = Moderate Assistance (Subject = 50% +), 4 = Minimal Assistance (Subject = 75% +), 5 = Supervision, 6 = Modified [place] (Device), 7 = Complete [place] (Timely, Safely). Assessment Date/Time Source Assessment Type Assessment Skill Assessment Score Assessment Details No data available for this section
--- OUTSIDE RECORDS SUMMARY | 2024-11-14 10:28 | XMS_ITS | Clinical Summary ---
Author Organization [facility] [employer] Address [address] [place] [address] Care Team Providers Care Computer Project Manager Name Role Phone Maggie Hernadez APRN-PIG MACHINE OPERATOR HELPER Unavailable [facility] Primary Care Provider [phone] Fredis Arango DO Unavailable Source Comments [facility],non-owned Affiliates and Associated Physician Practices is amultiple site organization consisting of ambulatory clinics and hospital sitesin [place], [place], [place] and [place]. This disclosure is being madepursuant to the Care Everywhere program and may not contain all information available regarding this patient. Last updated 17.[facility] [employer] Allergies No known active allergies Medications * [...] on file Legal Sex Female 5:59 AM INSURANCE UNDERWRITER SALES Gender Identity Not on file Sexual Orientation Not on file Occupation Industry Job Start Date Job End Date Student Not on file Not on file Not on file Last Filed Vital Signs Vital Sign Reading Time Taken Comments Blood Pressure 134/82 04/24/2022 4:17 PM INSURANCE UNDERWRITER SALES Pulse 94 02/18/2019 3:15 PM INSURANCE UND[employer]ITER SAL[employer] Temperature - - Respiratory Rate - - Oxygen Saturation 98% 02/18/2019 3:15 PM INSURANCE UNDERWRITER SALES Inhaled Oxygen Concentration - - Weight 65.8 kg (145 lb) 04/28/2022 12:17 PM INSURANCE UNDERWRITER SAL[employer] Height 167.6 cm (5' 6) 04/24/2022 4:17 PM [employer]URANCE UND[employer]WRITER SAL[employer] Body Mass Index 23.4 04/24/2022 4:17 PM INSURANCE UNDERWRITER SAL[employer] Plan of Treatment Health Maintenance Due Date Last Done Comments HIV SCREENING 2012 HEPATITIS C SCREENING 10/29/2015 MENINGOCOCCAL (Group B) VACCINE SHARED DECISION-MAKING (2 of 2 - Bexsero SCDM 2-dose series) 05/24/2016 11/22/2015, 11/22/2015 DTAP/TDAP/TD VACCINES (7 - Td or Tdap) 11/23/2018 11/23/2008, 05/27/2002, 05/24/1999, Additional history exists PAP SMEAR 04/24/2023 04/24/2022, 03/25/2019 COVID-19 VACCINE ( season) 2023 08/07/2020, 07/15/2020 DEPRESSION SCREENING 04/09/2024 04/28/2022, 02/11/20 22 HPV VACCINE (1 - 3-dose SCDM series) 2024 INFLUENZA VACCINE (#1) 2024 02/18/2019 ZOSTER VACCINE (1 of 2) [...] RFLX HPV ASCU Routine 04/24/2022 5:03 PM INSURANCE UNDERWRITER SALES Well woman exam from Last 3 Months or Most Recently Relevant to Health Maintenance Results * PAP IG LB CT+NG+TV RFLX HPV ASCU (04/24/2022 5:03 PM INSURANCE UNDERWRITER SALES) Diagnosis [facility] ACCOUNT BILL Comment:NEGATIVE FOR INTRAEP [...] UTERINE CERVIX / Unknown 04/24/2022 5:03 PM INSURANCE UNDERWRITER SALES 04/26/2022 Narrative [facility] ACCOUNT BILL - 04/27/2022 3:09 PM INSURANCE UNDERWRITER SALES No. of containers..01 ThinPrep Vial Resulting Agency Comment Lab Testing performed at: [facility] [phone] [place] Fredis Arango DO LAB - PATHOLOGY/CYTOLOGY ORDERAB LES Final Result [facility] ACCOUNT BILL [address] [place] [address] from Last 3 Months or Most Recently Relevant to Health Maintenance Insurance Care Teams Computer Project Manager Relationship Specialty Start Date End Date Luna Ravi MD [address] [phone] PCP - General Family Medicine 02/10/22 Maggie Hernadez APRN-PIG MACHINE OPERATOR HELPER Nurse Practitioner 08/01/19 Fredis Arango DO [address] [id number] Obstetrics and Gynecology 04/28/22
[2024-11-14 10:57] LABS: Hematocrit 34.0 % (37.0-47.0); Hemoglobin 11.8 g/dL (12.0-15.0); Mean Corpuscular HGB Conc 34.7 g/dl (32-36); Mean Corpuscular Hemoglobin 31.4 pg (26-34); Mean Corpuscular Volume 90.4 fl (80-100); Platelet Count Result 241 k/mm3 (150-375); Red Blood Count 3.76 M/mm3 (4.2-5.4); White Blood Count 6.6 K/mm3 (4.5-10.0)
[2024-11-14 11:34] LABS: Beta HCG Quantitative 9093.40 mIU/ML
[2024-11-14 11:59] LABS: HIV 1/2 Ab P24 Ag Result Negative (Negative)
[2024-11-14 12:20] LABS: Syphilis IgG/IgM Antibody Non-Reactive (Nonreactive)
[2024-11-14 13:12] LABS: Hepatitis B Surface Antigen Negative (Negative)
[2024-11-15 05:08] LABS: Cytomegalovirus (CMV) Ab, IgG <0.60 U/mL (0.00-0.59)
[2024-11-17 12:07] LABS: Varicella-Zoster Ab, IgG Reactive (Non Reactive); Varicella-Zoster Ab, IgM <0.91 index (0.00-0.90)
[2024-11-18 13:08] LABS: Parvovirus B19, IgG 7.0 index (0.0-0.8); Parvovirus B19, IgM 0.1 index (0.0-0.8)
== END 2024-11-14 10:24 | disposition home or self-care (01) ==
LOC: ANHLAB 10:24
PROVIDERS: PCP Registered Nurse; Visit Provider Student in an Organized Health Care Education/Training Program
DX: N91.2 Amenorrhea, unspecified (principal)
CPT/HCPCS: 36415; 84702; 85027; 86593; 86644; 86703; 86747; 86762; 86787; 86850; 86900; 86901; 87086; 87340; G0432